=== PATIENT | female | born 1955 ===

== ENCOUNTER 2017-06-11 00:51 | Outpatient (CLI) | payer MEDICARE | END 2017-06-11 23:59 | disposition home or self-care (01) | LOC: DIABETIC 00:51 | PROVIDERS: ATTEND Specialist | DX: E11.65 Type 2 diabetes mellitus with hyperglycemia (principal) | CPT/HCPCS: G0108 ==

== ENCOUNTER 2017-09-03 04:58 | Outpatient (CLI) | payer MEDICARE | END 2017-09-03 23:59 | disposition home or self-care (01) | LOC: DIABETIC 04:58 | PROVIDERS: ATTEND Specialist | DX: E11.65 Type 2 diabetes mellitus with hyperglycemia (principal) | CPT/HCPCS: G0108 ==

== ENCOUNTER 2018-01-08 00:25 | Outpatient (CLI) | payer MEDICARE | END 2018-01-08 23:59 | disposition home or self-care (01) | LOC: DIABETIC 00:25 | PROVIDERS: ATTEND Specialist | DX: E11.65 Type 2 diabetes mellitus with hyperglycemia (principal); Z88.0 Allergy status to penicillin | CPT/HCPCS: G0108 ==